=== PATIENT | male | born 1975 | race Caucasian/White ===

== ENCOUNTER 2020-12-20 08:35 | Outpatient (REF) | payer MEDICAID, SELFPAY ==
[2020-12-20 14:43] LABS: ALT 26 U/L (16-63); AST 16 U/L (15-37); Albumin 4.1 g/dL (3.4-5.0); Alkaline Phosphatase 90 U/L (46-116); Anion Gap 10.8 mmol/L (3-11); BUN 14 mg/dL (7-18); Bilirubin, Total 0.5 mg/dL (0.2-1.0); CO2 26.2 mmol/L (21.0-32.0); Calcium 9.1 mg/dL (8.5-10.1); Calculated LDL 119 mg/dL (<100); Chloride 108 mmol/L (98-107); Cholesterol 178 mg/dL (<200); Glucose 91 mg/dL (74-106); HDL Cholesterol 42 mg/dL (40-60); Potassium 4.4 mmol/L (3.5-5.1); Sodium 145 mmol/L (136-145); Total Protein 6.8 g/dL (6.4-8.2); Triglyceride 88 mg/dL (<150)
== END 2020-12-20 08:36 | disposition home or self-care (01) ==
LOC: NCHCN 08:35
PROVIDERS: Visit Provider Internal Medicine
DX: Z13.220 Encounter for screening for lipoid disorders (principal); Z13.228 Encounter for screening for other metabolic disorders
CPT/HCPCS: 80053; 80061

== ENCOUNTER 2023-04-29 16:06 | Outpatient (REF) | payer MEDICAID, SELFPAY ==
[2023-04-29 21:32] LABS: Calculated LDL 120 mg/dL (<100); Cholesterol 206 mg/dL (<200); HDL Cholesterol 35 mg/dL (40-60); Triglyceride 259 mg/dL (<150)
== END 2023-04-29 16:07 | disposition home or self-care (01) ==
LOC: NCHCN 16:06
PROVIDERS: Visit Provider Internal Medicine
DX: F17.210 Nicotine dependence, cigarettes, uncomplicated (principal); E78.5 Hyperlipidemia, unspecified; Z00.00 Encounter for general adult medical examination without abnormal findings
CPT/HCPCS: 80061

== ENCOUNTER 2023-09-27 06:56 | Day surgery (SDC) | payer MEDICAID, SELFPAY ==
--- NOTE | 2023-09-26 17:03 | ANES.PREOP_ITS ---
General Info Date of Service Date Performed: 09/27/23 Height: 5 ft 8 in Weight: 77.111 kg Body Mass Index (BMI): 25.8 Surgical Procedure: Operation Date: 09/27/23 08:20 Proposed Procedure Side Surgeon p Colonoscopy Steven Swartz MD Meds Allergies and Home Medications Allergies Allergy/AdvReac Type Severity Reaction Status Date / Time azithromycin [From Zithromax] Allergy Intermediate rash Verified 09/27/23 07:22 Home Medication Medication Instructions Recorded bisacodyl 5 mg tablet,delayed 5 mg PO ONCE colonscopy bowel prep 08/31/23 release (Dulcolax (bisacodyl)) #4 tabs polyethylene glycol 3350 17 238 g PO ONCE colonoscopy prep 08/31/23 gram/dose oral powder #238 grams Current Visit Medications: Current Medications Generic Name Dose Route Start Last Admin Trade Name Freq PRN Reason Stop Dose Admin Ringer's Solution 1,000 mls @ 80 mls/hr 09/27/23 06:00 IV 10/24/23 23:59 INFUSION ASHLIE IV Miscellaneous Supplies 1 each 09/27/23 06:00 Iv Access IV 10/24/23 23:59 DIRECTED ASHLIE Sodium Chloride 0 ml 09/27/23 06:00 Normal Saline Flush 10 Ml Syr IV 10/24/23 23:59 PRN PRN Sodium Chloride 0 ml 09/27/23 06:00 Normal Saline 10 Ml Vial IJ 10/24/23 23:59 DIRECTED PRN Sterile Water 0 ml 09/27/23 06:00 Water,Injection,Sterile 10 Ml Vial IJ 10/24/23 23:59 DIRECTED PRN PFSH Active Problems Active Problems: Problem Status Onset Code Nicotine dependence F17.200 Verruca plantaris B07.0 Surgical History Surgical History Fracture tibia/fibula 2016 placement of hardware H/O umbilical hernia repair 07/26/2017 Tobacco Smoking/Tobacco Use Status: Current every day Tobacco Type: cigarettes Smoking packs per day: 1 Smoking cigarettes per day: 20.0 Years smoked: 30 Smoking pack- years: 30.00 Alcohol Alcohol Intake: current Alcohol intake frequency: a few times a week Alcohol type: beer Substance Use Substance use: Never Substance use type: does not use Vital Signs and Lab Results Vital Signs Most Recent Vital Signs in EMR: Temp Pulse Resp BP Pulse Ox 36.5 C 64 16 124/79 96 09/27/23 07:23 09/27/23 07:23 09/27/23 07:23 09/27/23 07:23 09/27/23 07:23 Lab Results Blood Type / Crossmatch: No Data to Display Complete Blood Count: No Data to Display Complete Metabolic Panel: No Data to Display Liver Function Panel: No Data to Display Coagulation Panel: No Data to Display Cardiac Panel: No Data to Display Arterial Blood Gas: No Data to Display Venous Blood Gas: No Data to Display Pancreas Panel: No Data to Display Thyroid Panel: No Data to Display Infectious Disease: No Data to Display Blood Cultures: No Data to Display Toxicology Panel: No Data to Display Anesthesia Assessment and Plan Anesthesia History Personal History: No History of Anesthesia Complications Family History: No Family History of Anesthesia Complications Exercise Tolerance Exercise Tolerance: Metabolic Equivalents>4 Cardiac & Pulmonary Exam Cardiac Exam: Normal S1/S2 Heart Sounds Pulmonary Exam: Clear Bilateral Breath Sounds Implantable Cardiac Device Does patient have a Pacemaker or an ICD?: No Airway Exam Known Difficult Airway: No Mallampati Class: 4 Mouth Opening: Normal (> 3cm) Thyromental Distance: Greater than 3 cm Facial Hair: Full Gneao Neck Range of Motion: Full ROM Neck Circumference: Normal Teeth Condition: Removable Dentures/Plates Upper and Removable Dentures/Plates Lower (partial plate, only has his front bottoms. ) ASA Classification ASA Score: ASA 2 Emergency Case?: No NPO Status NPO Status: NPO Clears >2 hours, Solids >8 hours Anesthesia Plan Resuscitation Status: Full Code Anesthesia Technique: General Anesthesia Airway Planned: Natural Airway Monitors Used: Standard Monitors Preoperative Comments:: 48 yo male for colo. Sig PMHx: heavy smoker, occ EtOH.
[2023-09-27 07:23] VITALS: BP 124/79; PULSE 64; RESP 16; TEMP 36.5; O2SAT 96
[2023-09-27 07:51] VITALS: BMI 25.8
[2023-09-27] MEDS: Lactated Ringers 1,000 ML 80 ML IV (07:52)
--- NOTE | 2023-09-27 08:18 | COLE_ITS ---
Date of service: 09/27/23 Time of Service: 08:18 Colonoscopy Report Procedure Description: PROCEDURES PERFORMED: 1. Colonoscopy with cold forceps polypectomy x5 PREOPERATIVE DIAGNOSIS: Screening colonoscopy POSTOPERATIVE DIAGNOSIS: Colon polyps, rectal polyps, minimal diverticular di samie SURGEON: Carmella Swartz MD INDICATION for procedure: The patient is a 48-year-old man who has never had a colonoscopy before. He is due for screening. He has no symptoms. An isolated grandmother had colon cancer. FINDINGS: The terminal ileum was normal. 3 small, flat, 2-3 mm sessile polyps were removed from the colon (transverse, descending and sigmoid) with cold forceps technique. They look hyperplastic in nature. 2 rectal polyps, same size and appearance, removed with cold forceps technique. They also look hyperplastic. There were scattered diverticular changes in the sigmoid colon but they are minimal overall. SURVEILLANCE interval/FOLLOW-UP: 3 - 10 years depending on the histology. If sessile serrate or villous histology, then in 3 years. Otherwise, 7-10 year followup is acceptable. SPECIMENS: yes EBL: Minimal COMPLICATIONS: None QUALITY of prep: Excellent Procedure in detail: The patient gave written consent and was in agreement with the indications, the potential risks as well as the benefits of the procedure. The patient was taken to the endoscopy suite and laid in the left lateral decubitus position. A timeout was performed and anesthesia was administered which was tolerated well. I started the procedure. Digital rectal and visual examination was performed and grossly within normal limits. A well-lubricated flexible colonoscope was then introduced and passed without any notable difficulty all the way to the cecum identified by the ileocecal valve and the appendiceal orifice. The terminal ileum was briefly intubated and looked normal. The scope was then slowly withdrawn with the above-noted findings. The patient tolerated the procedure well and was taken to the PACU in hemodynamically stable condition.
--- NOTE | 2023-09-27 08:20 | W.PM.DSUDISC ---
Date of service: 09/27/23 Time of Service: 08:20 Discharge Plan Disposition Patient Disposition: Home Condition: Good Discharge Details Attending Provider: Steven Swartz Primary Care Provider: Samantha Meng Home Meds and New Rx's Prescriptions: No Action polyethylene glycol 3350 17 gram/dose powder 238 g PO ONCE Qty: 238 0RF Rx Instructions: take per colonoscopy instructions bisacodyl [Dulcolax (bisacodyl)] 5 mg tablet,delayed release (DR/EC) 5 mg PO ONCE Qty: 4 0RF Rx Instructions: take per colonoscopy instructions Discharge Instructions Additional Instructions: FINDINGS: Some small polyps were found and removed today. This is why we do the colonoscopy. There is nothing to worry about. Depending on the type of polyp they end up being under a microscope, they might require you to come back and do another colonoscopy in 3 years. Most likely need to do another colonoscopy in 10 years. You will get called in a couple of weeks to tell you which. Some very minimal/mild diverticular changes are present in your colon. This is an extremely common condition, benign and nothing needs to be done about it. Stand Alone Forms: Anesthesia Discharge Inst., Kirill Pittman (DARRIN) Activity:: Activity as Tolerated Diet:: As Tolerated
--- NOTE | 2023-09-27 08:35 | BOWEL_PTH ---
PATIENT: Jonny Dickens LOC: [facility] U#:[id number] AGE/SX: 48/M ROOM: RE09/27/[address]: Steven Swartz : 1975 BED: DIS: 09/27/2023 SPEC #: [id number] RECD: 09/27/23 12:43 STATUS: MACHELLE RETobi #: [id number] ELIAS: 09/27/23 08:[address]: Steven Swartz DEPT: Surgical Specimen RECD BY: Karuna Crouch ENTERED: 09/27/23 12:45 SP TYPE: Bowel OTHR DR: Samantha Meng Tissues: 1 - BIOPSY BOWEL 2 - BIOPSY BOWEL 3 - BIOPSY BOWEL 4 - BIOPSY BOWEL 5 - BIOPSY BOWEL Procedures: GROSS AND MICRO LEVEL 4 Comments: [id number]
[2023-09-27 08:48] VITALS: BP 95/76; PULSE 46; RESP 18; TEMP 36.3; O2SAT 96
--- NOTE | 2023-09-27 09:00 | W.ANESPOSTOP ---
Postoperative Evaluation Date, Time and Location Date Performed: 09/27/23 Time Performed: 09:00 Patient Location: Day Surgery Unit Vital Signs Most Recent Imported Vital Signs: Most Recent Vital Signs Temp Pulse Resp BP Pulse Ox 36.3 C L 46 L 18 95/76 L 96 09/27/23 08:48 09/27/23 08:48 09/27/23 08:48 09/27/23 08:48 09/27/23 08:48 Pain Score Most Recent Pain Score: Most Recent Pain Score Pain Level 0 09/27/23 08:48 Assessment Mental Status: Awake (Alert & Oriented to Patient Baseline) Airway and Respiratory Function: Patent airway with normal (patient baseline) respiratory exam Cardiovascular Function: Hemodynamically Stable Hydration Status: Adequately Hydrated Nausea & Vomiting: No Nausea or Vomiting Pain: Pt. Denies Any Pain Peripheral Nerve Block: Patient did not receive a nerve block
[2023-09-27 09:12] VITALS: BP 117/87; PULSE 54; RESP 16; TEMP 36.4; O2SAT 97
== END 2023-09-27 09:34 | disposition home or self-care (01) ==
PROVIDERS: PCP Internal Medicine; Visit Provider Student in an Organized Health Care Education/Training Program
PROC: 0DJD8ZZ Inspection of Lower Intestinal Tract, Via Natural or Artificial Opening Endoscopic (ICD-10-PCS; CPT 45378; principal; 2023-09-27 08:15)
DX: Z12.11 Encounter for screening for malignant neoplasm of colon (principal); K62.1 Rectal polyp; D12.3 Benign neoplasm of transverse colon; K57.30 Diverticulosis of large intestine without perforation or abscess without bleeding
CPT/HCPCS: 45380; 00123; 88305; J2704

== ENCOUNTER 2025-06-26 10:42 | Outpatient (REF) | payer MEDICAID, SELFPAY ==
[2025-06-26 16:25] LABS: Anion Gap 7.8 mmol/L (3-11); BUN 10 mg/dL (9-23); CO2 25.2 mmol/L (20.0-31.0); Calcium 9.0 mg/dL (8.3-10.6); Chloride 109 mmol/L (98-107); Cholesterol 197 mg/dL (<200); Glucose 98 mg/dL (74-106); HDL Cholesterol 45 mg/dL (>40); Potassium 4.1 mmol/L (3.5-5.1); Sodium 142 mmol/L (136-145)
== END 2025-06-26 10:43 | disposition home or self-care (01) ==
LOC: NCHCN 10:42
PROVIDERS: PCP Internal Medicine; Visit Provider Internal Medicine
DX: Z00.00 Encounter for general adult medical examination without abnormal findings (principal); E78.5 Hyperlipidemia, unspecified
CPT/HCPCS: 80048; 80061